=== PATIENT | female | born 1990 | race American Indian/Alaskan Native ===

== ENCOUNTER 2019-03-18 19:24 | Emergency (ER) | payer OTHER ==
--- NOTE | 2019-03-18 21:24 | Event Note ---
ED Screening Note Date of service: 03/18/19 Time: 21:22 ED Screening Note: This is a 28 y.o. F. that presents to the ER with chest pain that started this morning. Reports pain as burning intensity that is constant. This initial assessment/diagnostic orders/clinical plan/treatment(s) is/are carter bject to change based on patients health status, clinical progression and re- assessment by fellow clinical providers in the ED. Further treatment and workup at subsequent clinical providers discretion. Patient/guardian urged not to elope from the ED as their condition may be serious if not clinically assessed and managed. Initial orders include: EKG and CXR
--- NOTE | 2019-03-18 22:37 | XRay Report ---
CHEST 1 VIEW INDICATION: Chest Pain. COMPARISON: None. FINDINGS: Support devices: None. Heart: Within normal limits. Lungs/Pleura: No acute air space or interstitial disease. Additional findings: None. IMPRESSION: No acute abnormality. Signer Name: Mani Shaikh MD Signed: 03/18/2019 10:32 PM Workstation Name: [id number]
[2019-03-18] MEDS ORDERED: ALUM-MAG HYDROXIDE-SIMETHICONE 200-200-20MG/5ML ORAL LIQD 30 ML PO ONE (23:30)
[2019-03-18] MEDS ORDERED: HYOSCYAMINE SUBL 0.125 MG TAB SL ONE (23:30)
[2019-03-18] MEDS ORDERED: LIDOCAINE VISCOUS 2% 15 ML ORAL LIQD PO ONE (23:30)
[2019-03-18] MEDS ORDERED: SUCRALFATE 1 GM/10 ML ORAL LIQD PO ONE (23:31)
[2019-03-18 23:52] VITALS: BP 114/63
--- NOTE | 2019-03-19 00:17 | Emergency Department Report ---
ED General Adult HPI - General Chief complaint: Chest Pain Stated complaint: CHEST PAIN SOB Time Seen by Provider: 03/18/19 21:22 Source: patient Mode of arrival: Ambulatory Limitations: No Limitations - History of Present Illness Initial comments: Patient is a 28-year-old female presents emergency room with complaints of substernal chest pain that began this morning. She states it feels like a burning sensation and a soreness. She states that last night she had barbecue for dinner. She states that when she ate today became more uncomfortable. She denies any fever, abdominal pain, nausea, vomiting, diarrhea, shortness of breath, leg swelling, recent surgery, recent immobilization, recent travel. She denies any past medical history or allergies medications. - Related Data Previous Rx's Medication Instructions Recorded Last Taken Type Vit Calc,Iron,Folic 1 each PO QDAY #30 tablet 10/08/15 Unknown Rx [ Vitamins] Famotidine [Pepcid] 40 mg PO QHS #30 tablet 03/19/19 Unknown Rx Sucralfate [Carafate] 1 gm PO ACHS 7 Days #21 tablet 03/19/19 Unknown Rx Allergies Allergy/AdvReac Type Severity Reaction Status Date / Time No Known Allergies Allergy Unverified 08/27/14 06:08 ED Review of Systems ROS: Stated complaint: CHEST PAIN SOB Other details as noted in HPI Comment: All other systems reviewed and negative ED Past Medical Hx - Past Medical History Previous Medical History?: No - Surgical History Past Surgical History?: No - Social History Smoking Status: Never Smoker - Medications Home Medications: Home Medications Medication Instructions Recorded Confirmed Last Taken Type Vit Calc,Iron,Folic 1 each PO QDAY #30 tablet 10/08/15 Unknown Rx [ Vitamins] Famotidine [Pepcid] 40 mg PO QHS #30 tablet 03/19/19 Unknown Rx Sucralfate [Carafate] 1 gm PO ACHS 7 Days #21 tablet 03/19/19 Unknown Rx ED Physical Exam - General Limitations: No Limitations General appearance: alert, in no apparent distress - Head Head exam: Present: atraumatic, normocephalic - Eye Eye exam: Present: normal appearance - ENT ENT exam: Present: mucous membranes moist - Respiratory Respiratory exam: Present: normal lung sounds bilaterally. Absent: respiratory distress, wheezes, rales, rhonchi, stridor, chest wall tenderness, accessory muscle use, decreased breath sounds, prolonged expiratory - Cardiovascular Cardiovascular Exam: Present: regular rate, normal rhythm, normal heart sounds. Absent: systolic murmur, diastolic murmur, rubs, gallop - Neurological Exam Neurological exam: Present: alert, oriented X3 - Psychiatric Psychiatric exam: Present: normal affect, normal mood - Skin Skin exam: Present: warm, dry, intact ED Course Vital Signs 03/18/19 03/18/19 03/19/19 21:22 23:51 00:00 Temperature 97.9 F 97.7 F Pulse Rate 92 H 77 Respiratory 20 18 18 Rate Blood Pressure 151/96 Blood Pressure 114/63 [Right] O2 Sat by Pulse 100 98 98 Oximetry ED Medical Decision Making - EKG Data EKG shows normal: sinus rhythm, axis, intervals, QRS complexes, ST-T waves Rate: normal - Radiology Data Radiology results: report reviewed CHEST 1 VIEW INDICATION: Chest Pain. COMPARISON: None. FINDINGS: Support devices: None. Heart: Within normal limits. Lungs/Pleura: No acute air space or interstitial disease. Additional findings: None. IMPRESSION: No acute abnormality. Signer Name: Mani Shaikh MD Signed: 03/18/2019 10:32 PM Workstation Name: [id number] Transcribed By: ES Dictated By: Mani Shaikh MD Electronically Authenticated By: Mani Shaikh MD Signed Date/Time: 03/18/192231 DD/ 31 TD/TT: - Medical Decision Making Patient is a 28-year-old female presents emergency room with complaints of substernal chest pain that began this morning. She states it feels like a burning sensation and a soreness. She states that last night she had barbecue for dinner. She states that when she ate today became more uncomfortable. She denies any fever, abdominal pain, nausea, vomiting, diarrhea, shortness of breath, leg swelling, recent surgery, recent immobilization, recent travel. She denies any past medical history or allergies medications. Initial vitals with mildly elevated HR and mildly elevated blood pressure which improved to normal upon repeat. CXR: No acute abnormality. EKG WNL. Patient given medications and her symptoms completely resolved. Patient states that she is feeling much better. Symptoms and relief with GI cocktail appear consistent with GERD. PERC criteria negative for PE. Heart score and NEHEMIAH score are 0, very low risk for cardiac event. Patient given prescription for Pepcid and Carafate. advised pt to please take medication as prescribed. Increase your water intake over the next several days. Please follow the diet and avoid certain triggers. Follow- up with a primary care doctor in the next 2-3 days. Follow-up with a GI doctor if symptoms are not improving. Return to the emergency room for any new or worsening symptoms. - Differential Diagnosis GERD, PUD, musculoskeltal, gastritis, PTX, HCM, PE Critical care attestation.: If time is entered above; I have spent that time in minutes in the direct care of this critically ill patient, excluding procedure time. ED Disposition Clinical Impression: Atypical chest pain GERD (gastroesophageal reflux disease) Qualifiers: Esophagitis presence: without esophagitis Qualified Code(s): K21.9 - Gastro- esophageal reflux disease without esophagitis Disposition: TO HOME OR SELFCARE Is pt being admited?: No Does the pt Need Aspirin: No Condition: Stable Instructions: Chest Pain (ED), Diet for Ulcers and Gastritis (ED), Gastroesophageal Reflux Disease (ED) Additional Instructions: Please take medication as prescribed. Increase your water intake over the next several days. Please follow the diet and avoid certain triggers. Follow-up with a primary care doctor in the next 2-3 days. Follow-up with a GI doctor if symptoms are not improving. Return to the emergency room for any new or worsening symptoms. Prescriptions: Famotidine [Pepcid] 40 mg PO QHS #30 tablet Sucralfate [Carafate] 1 gm PO ACHS 7 Days #21 tablet Referrals: PRIMARY CAREMD [Primary Care Provider] - 2-3 Days [facility] [Provider Group] - 3-5 Days Time of Disposition: 00:15 Print Language: [id number]
== END 2019-03-19 00:20 | disposition home or self-care (01) ==
LOC: ED 19:24
DX: K21.9 Gastro-esophageal reflux disease without esophagitis (principal); Z79.899 Other long term (current) drug therapy
CPT/HCPCS: 71045; 93005; 93010